=== PATIENT | male | born 1955 | race Caucasian/White ===

== ENCOUNTER 2019-06-16 17:14 | Inpatient (IN) | payer BC, OTHER ==
[~2019-06-16] VITALS: Ht 162.6 cm; Wt 55.3 kg
[2019-06-16 18:00] VITALS: BP 115/59
--- NOTE | 2019-06-16 19:36 | NUR ---
Admitted patient approx 1730. Patient presents drowsy. Patients was present. Patients assessment shows clear breath sounds bilaterally, active bowel sounds, and s1 s2 present with a regular rhythm. Patient has a small scab on his left elbow. Patient came to [facility] with an iv in the left antecubital area. Patient is calm and denies pain. Vital signs stable. Consents signed by patients . Patient is currently unstable to ambulate without assistance. Patients was given the passcode for calling [facility].
[2019-06-16] MEDS ORDERED: DULCOLAX STOOL100 M1 PO (19:48)
[2019-06-16] MEDS ORDERED: MELATIN3 MG (19:50)
[2019-06-16] MEDS ORDERED: OLANZAPINE ODT5 MG PO (19:51)
[2019-06-16] MEDS ORDERED: CARBIDOPA-LEVO1 EAC5 PO (19:53)
[2019-06-16] MEDS ORDERED: ZYPREXA2.5 MG IM (19:53)
[2019-06-16] MEDS ORDERED: DONEPEZIL HCL10 MG PO (19:55)
[2019-06-16] MEDS ORDERED: ESCITALOPRA5 MG/5 ML PO (19:56)
[2019-06-16] MEDS ORDERED: ARICEPT10 M1 PO (19:56)
[2019-06-16] MEDS ORDERED: NAMENDA 10 MG T10 MG PO (19:57)
[2019-06-16 23:34] VITALS: BP 118/62
--- NOTE | 2019-06-17 03:43 | NUR ---
ASSUMED CARE OF PATIENT AT APPROXIMATELY 1915, 06/16/19. HE IS CALM AND COOPERATIVE APPEARS WITH A SAD FLAT AFFECT. HE DOES RESPOND APPROPRIATELY TO QUESTIONS AND FOLLOWS PROMPTS AND DIRECTIONS WITH EASE. HE IS MEDICATION COMPLIANT; TAKES MEDICATION WHOLE WITH NO ISSUES. HE WAS ABLE TO AMBULATE TO THE TOILET WITH X1 ASSIST. HE DENIED SI HI AND DID NOT APPEAR TO EXPERIENCE HALLUCINATIONS. HE DID NOT REPORT MEDICAL CONCERNS WITH NO S/S OF DISTRESS. NURSING WILL MAINTAIN Q12 CHECKS TO ENSURE SAFETY AT ALL TIMES.
--- NOTE | 2019-06-17 06:25 | NUR ---
PATIENT REFUSED 0600 MORNING MEDICATIONS. WHILE ATTEMPTING TO ADMINISTER MEDICATION, PATIENT APPEARED WITH A STOIC AFFECT, APPEARS SAD ET FLAT. CURRENTLY PATIENT IS LOOKING DOWN AND WILL NOT LOOK UP TO THIS NURSES FACE OR ACKNOWLEDGE THIS NURSE. WILL CONTINUE TO MONITOR.
--- NOTE | 2019-06-17 08:53 | NUR ---
Ramo called spouse to complete intake assessment. Pt has had increased behaviors and impulsivity. Pt's works 4 days a week and states she wants her spouse placed in a memory care. Thye are not prepared for this and will be consulting with an elder law city attorney today. Pt will need DPOA paperwork signed for medical and spouse will need to apply for medicaid for placement and pick a place. Ramo reinforced the urgency to complete these tasks due to time contraints.
[2019-06-17 10:46] VITALS: BP 93/57
--- NOTE | 2019-06-17 11:00 | NUR ---
704 Report received from overnight shift, patient ate breakfast took medication without incidence. Patient quiet minimal eye contact, nonverbal, cooperative.
[2019-06-17 13:11] VITALS: BP 93/57
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
[2019-06-17 20:16] VITALS: BP 127/68
--- NOTE | 2019-06-18 01:45 | NUR ---
PATIENT ASSESSED AND IS ALERT X 1 SELF. RESP EVEN AND UNLABORED. SKIN WARM AND DRY. CAME IN WITH PARKINSON DISEASE AND DEMENTIA. IS A FULL CODE. INCONT OF BOWEL AND BLADDER. HAD THORAZINE ON BOARD DUE TO BEHAVIOR THIS AFTERNOON. AWAKEN AROUND 1000 PM WAS VERY COOPERATIVE IN BEHAVIOR. WALKED TO BATHROOM TO VOID. IS MAX ASSIST WITH GAIT BELT AND WALKER. UNKNOWN WHENHE HAD A LAST BM WILL GIVEN MED IN AM FOR HIS BOWELS. VS STABLE. HAS TO HAVE A 1:1 WHEN HE IS AWAKE, AND 1: 1 CAN BE DC WHEN HE IS A SLEEP. NO SI/HI NOTED. HAS BEEN VERY COOPAERATIVE WITH STAFF AND RN THIS SHIFT SO FAR. TAKEN HS MEDS WELL. LUNGS CTA. NO EDEMA NOTED TO LOWER EXTREMITIES. TAKES MEALS WELL. WILL CONTINUE TO ASSESS BEHAVIOR THIS SHIFT. HAD AN ISSUE WHEN HE WAS IN CHAIR WITH LAP DYLAN, GOT COMBATIVE, WAS GIVEN THORAZINE FOR HIS BEHAVIOR. CONT PLAN OF CARE.
--- NOTE | 2019-06-18 07:00 | NUR ---
Assumed care of patient this am. Patient confused but cooperative. Patients affect is flat. Patient is slow to respond to verbal communications. Patient ambulates via wheel chair. Patients assessment reveals clear breath sounds, active bowel sounds, and heart tones s1 and s2. Vital signs stable. Patient takes medications crushed in ice cream or pudding. Patients appetite is good.
[2019-06-18 09:30] VITALS: BP 101/57
--- NOTE | 2019-06-18 13:51 | NUR ---
JAYA met with spouse while she visited her today. Sw provided her with a list of Medicaid [place] and SNF.
[2019-06-18 20:28] VITALS: BP 119/65
--- NOTE | 2019-06-18 21:59 | NUR ---
PT PROPELING SELF IN W/C IN DAY ROOM AND HALLWAY. LAP BELT, CHAIR AND BED ALARMS IN USE. SLOUCHED OVER, POOR EYE CONTACT, NO VERBAL STATEMENTS TO QUESTIONS ASKED. PT PICKING AT PANTS AND TAKING OFF SOCKS. PT COMPLIANT WITH MEDS AND HS SNACK. WHEN PT WAS HAVING ADL AND INCONTINENCE CARES PT WAS IMPULISIVELY STANDING GRABBING AND SQUEEZING AT STAFFS HANDS AND LEGS. PT KICKING, PUSHING HIS BODY INTO STAFF. SECURITY WAS ON FLOOR ALREADY AND ASSISTED WITH RETURNING PT TO CHAIR. PT RESPONDED TO DIRECTIONS BY MALE SECURITY, NO VERBAL RESPONSES RETURNED. PT HAD PRN IM FOR SEVERE AGIATION. PT SITTING IN BED AND STAFF ARE HAVING TO SIT IN ROOM, PT REMAINS UPRIGHT IN BED GRABBING AT SHEETS.
--- NOTE | 2019-06-18 23:15 | NUR ---
PT DID FALL ASLEEP AND RESTING IN BED, ALARM INTACT.
--- NOTE | 2019-06-19 00:48 | NUR ---
PT INCONTINENT AND SET OFF ALARM WHEN TRYING TO GET OUT OF BED. PT RESISTANT TO ADL CARE, BUT NOT AGGRESSIVE. PT REMINDED THE POLICE WOULD BE CALLED IF HE DID NOT HELP US AND PT FOLLOWED DIRECTIONS FOR STAFF.
--- NOTE | 2019-06-19 01:52 | NUR ---
PT RESTLESS NOT SLEEPING SITTING UP PICKING AT SHEETS, PULLING SELF UP IN IF GOING TO LEAN OUT OF BED. PT GRABS AT STAFF DURING INCONTINENCE CHECKS. KICKS LEGS OUT OF BED PRN IM GIVEN FOR CONTINUED AGITATION.
--- NOTE | 2019-06-19 02:47 | NUR ---
PT AWAKENED TO USE RESTROOM, WAS ABLE TO FOLLOW DIRECTIONS, WAS NOT COMBATIVE, STATED THANK YOU AND RETURNED TO BED.
[2019-06-19 11:00] VITALS: BP 99/63
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
--- NOTE | 2019-06-19 12:30 | EKG ---
[address] [address] ELECTROCARDIOGRAM REPORT Name: SALOME AGUERO Room #: 528A-A ADM IN .R.#: [id number] Admission: 06/16/19 Attend Phys: Michelet Baca DO Discharge: Date of : 59 Report #: [id number] THIS REPORT FOR: //name// [facility] Test Date: 2019-06-19 Test Time: 09:22:12 Pat Name: SALOME AGUERO Department: Room: [facility] A Gender: M [employer] Lead: RT : 1955 Requested By: Michelet Baca Order Number: [id number] MD: Mukesh Lin Measurements Intervals [place] Rate: 74 P: 66 IN: 145 QRS: 68 QRSD: 100 T: 28 QT: 417 QTc: 463 Interpretive Statements Sinus rhythm No previous ECG available for comparison Electronically Signed On 06-19-2019 12:30:19 [employer] SUPERVISOR by Mukesh Lin [email or web address] <ELECTRONICALLY SIGNED> By: Mukesh Lin MD 06/19/19 1230 0922 09 Mukesh Lni MD /EPI
--- NOTE | 2019-06-19 15:27 | NUR ---
JAYA sent referrals to [facility]- both declined. [facility], [facility], [facility], [facility] [place] , [facility], [facility], [facility]. [facility], [facility], [facility], [facility], [facility]
--- NOTE | 2019-06-19 15:30 | NUR ---
Ramo sent DA 124 to [facility]
[2019-06-19 19:40] VITALS: BP 155/94
[2019-06-19 23:16] VITALS: BP 99/63
--- NOTE | 2019-06-20 03:01 | NUR ---
PT UP IN WC IN DAY ROOM. QUIET AND COOPERATIVE WITH STAFF. DROWSY. ASSISTED WITH EVENING SNACK,AND TOOK HS MEDS WITH PUDDING. ALLOWED STAFF TO ASSIST TO ROOM AND BED. HAS SLEPT WELL THROUGH THE NIGHT.
--- NOTE | 2019-06-20 07:00 | NUR ---
Assumed care of patient this am. Patient asleep in bed. Patient arouses easily. Patient ambulates via wheelchair. Patient stands with assistence. Patient does display some tremoring. Patient denies pain. Patient takes medications crushed in pudding or applesauce. Patients assessment reveals clear breath sounds, active bowel sounds, and s1 s2 are present. Patients affect slightly blunted.
[2019-06-20 08:24] VITALS: BP 115/62
[2019-06-20 20:40] VITALS: BP 112/60
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
--- NOTE | 2019-06-20 22:18 | NUR ---
PT WAS COMPLIANT WITH USING URINAL AND HS ADL CARES. PT IS A TWO PERSON TO STAND IS REMAINS HUNCHED OVER.
--- NOTE | 2019-06-20 23:41 | NUR ---
PT HAS A STUFFY NOSE, WILL PASS ON FOR DAY SHIFT TO F/U.
--- NOTE | 2019-06-21 06:31 | NUR ---
marble cutter operator notified of pts stuffy nose, prn nasal spray ordered.
[2019-06-21 07:50] VITALS: BP 124/65
--- NOTE | 2019-06-21 08:25 | NUR ---
Date of Admission: 06/16/19 Date of Activity Therapy Assessment: 06/19/2019 Activity Goal: Pt will participate in one recreational therapy group per day to gain insight of helahty leisure choices. Initial Goal: One RT group Weekly progress towards goal:Did not achieve Group participation level:Minimal Behaviors observed:Pt is often confused and disoriented. Pt wanders and appers restless during group. Pt struggles with directions. Pt takes a lot of time to formulate a thought and it appears difficult for pt to communicate. Pt appears to respond well to sensory and fidget items. Pt could benefit from 1:1 interactions. Plan: Offer 1:1 or alternate sensory activity when appropriate.
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
[2019-06-21 11:12] VITALS: BP 124/65
--- NOTE | 2019-06-21 11:23 | NUR ---
0705 Report received from overnight shift, patient ate breakfast took medication without incidence. You have to place medication in patients mouth due to tremors. Patient does not attend groups, and is nonverbal, he is able to understand 1:1 instructions. Patient quiet plays with gown in day room, we will continue to monitor patient for safety.
[2019-06-21 20:23] VITALS: BP 129/73
--- NOTE | 2019-06-22 05:38 | NUR ---
PATIENT IS ALERT AND ORIENTED X1, HE HAS BEEN IN THE DAY ROOM SLOUCHED OVER IN HIS CHAIR MOST OF THE SHIFT. HE APPEARS WITH A FLAT BLUNTED AFFECT. SPEECH IS SOFT IN SOUND AND TONE. HE DISPLAYED NO AGGRESSIVE BX AND ALLOWED STAFF TO ASSIST HIM WITH ADLS. HE DID NOT REPORT SI HI OR HALLUCINATIONS. HE DENIED MEDICAL CONCERNS WITH NO S/S OF DISTRESS. NURSING WILL MAINTAIN ALL PRECAUTIONS TO ENSURE SAFETY AT ALL TIMES.
--- NOTE | 2019-06-22 07:00 | NUR ---
Assumed care of patient this am. Patient sitting in room on the side of the bed. Patient affect confused. Patient ambulates with wheelchair. Patient takes medications crushed in pudding or applesauce. Patient not responding to RN questions. Patients assessment shows bilateral wheezes in the upper lobes. Bowel sounds present. S1 s2 present. Patient requires help with feeding.
--- NOTE | 2019-06-22 08:00 | NUR ---
Patient became aggressive and agitated sitting in the mileu this am. Patient would not redirect. Patient started grabbing and hitting. Security was called, Patient was given an injection of zyprexa.
[2019-06-22 09:07] VITALS: BP 158/134
--- NOTE | 2019-06-22 10:39 | NUR ---
SW called pt's spouse twice to set up a family meeting , and left VM.
--- NOTE | 2019-06-22 14:47 | NUR ---
SW referrals to : [facility]
--- NOTE | 2019-06-22 16:06 | NUR ---
SW also called pt's dght and left a VM [facility] [phone].
--- NOTE | 2019-06-22 16:07 | NUR ---
Pt was denied by [facility].
--- NOTE | 2019-06-22 18:22 | NUR ---
Patient displayed aggressive behavior in the morning and required an IM injection of zyprexa. Patient calmed down after injection started working. Again in the afternoon patient started showing signs of aggressive behavior and was given another shot of zyprexa. Patient calmed down and remained awake in his chair resting comfortably.
[2019-06-22 19:12] VITALS: BP 120/66
[2019-06-23 01:02] VITALS: BP 120/66
--- NOTE | 2019-06-23 01:14 | NUR ---
PATIENT'S DAUGHTER ATNYA CALLED THIS EVENING AND IS WANTING DR HANSEN TO CALL HER TO DISCUSS PATIENT'S MEDS. SHE DOESN'T WANT HIM ON ZYPREXA DUE TO CONFLICTS WITH HIS PARKINSON'S MEDS THAT SHE READ ABOUT. PATIENT SAT UP IN THE DAYROOM MOST OF EVENING AND WAS CALM. HE TOOK HIS PILLS CRUSHED IN PUDDING WITHOUT PROBLEM. PATIENT LUNGS DIMINISHED AND HIS NOSE SOUNDS LIKE IT IS STUFFY AND STOPPED UP WHEN HE BREATHES. VSS. PATIENT HAS A SORE ON HIS LEFT FOREARM THAT HE WAS PICKING AT TONITE. THE SITE IS SCABBED OVER. PATIENT WAS SITTING IN HIS RECLINER UNTIL TIME FOR BED. PATIENT HAD INCONTINENT CARES DONE AND PATIENT POSITIONED COMFORTABLY IN BED. HE WAS NOT COMBATIVE. HE DID NOD HIS HEAD YES WHEN ASKED IF HE WAS READY TO GO TO BED. PATIENT IS SLEEPING AT THIS TIME. BED ALARM ON AND BED IN LOW POSITION. REPOSITIONING PATIENT NEEDED.
[2019-06-23 09:04] VITALS: BP 130/83
[2019-06-23 10:53] VITALS: BP 130/83
--- NOTE | 2019-06-23 11:01 | NUR ---
THE PATIENT HAS BEEN SITTING IN THE DAY ROOM THIS MORNING IN A WC WITH A LAP DYLAN ON. HE HAS BEEN A BIT RESTLESS. HE DOES ANSWER SOME QUESTIONS THAT ARE ASKED. HE IS INCONTINENT AND CONFUSED BUT IF ASKED TO USE THE BR SOMETIME HE WILL BE ABLE TO TELL YOU YES WHEN HE NEED TO GO. HE IS TO HAVE BR CHECKS Q2 HOURS. HE IS ORIENTED TO SELF. HIS IS VISITING HIM AT THIS TIME. HE NEEDS ASSISTANCE WITH EATING AND ADL'S. HE HAS BEEN CALM AND COOPERATIVE THIS AM. AND COMPLIANT WITH MEDICATIONS.
--- NOTE | 2019-06-23 12:57 | NUR ---
JAYA spoke with pt's spouse and Dr Baca. She was provided an update and explanation regaridng medications. JAYA reported about the referrals that were sent out and that several more were sent today. Pt will be seen by Elvis Lozano today too. She will be faxing the DPOA paperwork from the attorneys office today.
[2019-06-23 20:17] VITALS: BP 90/57
[2019-06-23 22:40] VITALS: BP 90/57
--- NOTE | 2019-06-23 23:32 | NUR ---
PATIENT WAS SITTING IN A RECLINER WITH WHEELS IN THE DINING ROOM. THIS NURSE AND ANOTHER NURSE WERE IN THE NURSE STATION WHEN NOTICED PATIENT SCOOTING TO EDGE OF CHAIR. WE CALLED OUT TO PATIENT TO "STOP" WE WERE RUNNING TO THE PATIENT. NICOLASA DEMARCO WAS SITTING IN THE DINING ROOM WHERE PATIENT WAS ALSO. THE NURSE JUAN Garza AND MYSELF REACHED THE PATIENT HE WAS FALLING TO THE GROUND. HE LANDED ON HIS BUTTOCKS. HE DENIES PAIN. HE DID NOT HIT HIS HEAD. PATIENT LOST BALANCE AND FELL. Kayy KRUEGER NP AND PATIENT'S NOTIFIED. THIS HAPPENED AFTER PATIENT HAD TAKEN HIS MEDS TO AID WITH SLEEP. THE PATIENT HAS DIAGNOSIS OF DEMENTIA WITH CONFUSION AND BEHAVIORS AND ALSO HAS PARKINSON'S. VITALS WERE DONE ON PATIENT WNOL 102/69, 72, 20, 98.1 AND 100% 02 RA. PATIENT IS IN BED NOW WITH BED ALARM ON AND BED IN LOW POSITION. PATIENT WAS TOILETED AND ASSESSED FOR PAIN AGAIN BEFORE GOING TO BED FOR THE NIGHT. WAS ALSO NOTIFIED.
[2019-06-23 23:40] VITALS: BP 117/94
--- NOTE | 2019-06-24 00:06 | NUR ---
PATIENT WAS RESTLESS AND AGITATED AND KEPT TURNING HIMSELF AROUND IN HIS BED. VERY FIDGETY. REPOSITIONED PATIENT AND ASSESSED FOR PAIN AND TOILET NEEDS. OLANZAPINE 2.5MG IM GIVEN IN RIGHT BUTTOCK. BED IN LOW POSITION AND ALARM ON. PATIENT LIKES TO SLEEP SIDEWAYS IN BED. FREQUENT CHECKS DONE TO MAKE SURE HIS HEAD IS NOT RESTING DIRECTLY ON THE SIDE RAIL. PILLOW PLACED APPROPRIATELY TO PROTECT THE BACK OF HIS HEAD AND NECK.
[2019-06-24 00:13] VITALS: BP 90/57
--- NOTE | 2019-06-24 07:00 | NUR ---
Assumed care of patient this am. Patient sitting up in mileu in a wheelchair. Patients affect soft and bright. Patient relaxed and smiling. Patient can ambulate via walker with assistance. Patient is not displaying any aggressive behaviors. Patient denies pain. Patients assesment reveals clear breath sounds, active bowel sounds, and s1 s2 present.
[2019-06-24 07:30] VITALS: BP 84/60
--- NOTE | 2019-06-24 10:49 | NUR ---
Nutrition: pt admitted with parkinsons dementia. Seen for early LOS and nsg request for supplement. RD ordered Ensure BID on 06/24. Pt on regular diet, eating highly variable amounts from refusal to 100% PO intake was 50-95% of meals yesterday and approx. 50% of ensure being consumed. Attempted to interview pt but unable to obtain info. No weight hx to asssess. Currently weight reflecting normal BMI. Per team meeting likely plan for placement. Provider feels pallative care reasonable due to life expectancy 6-9 mos. Continue feeding assistance at all meals. Place as low nutrition risk with interventions in place.
--- NOTE | 2019-06-24 14:37 | NUR ---
Ramo met with pt's spouse and Dr saenz this inlcuded a phone converstation with [facility]. It was regaridng meds and treatment. Ramo reported on LTC placement referrals that were sent and pending results. Ramo also spoke with Tran - service line coordinator at [facility] in [place] inpt psych reagrding a possible transfer, and she did not think this was in best interest of the pt, but is willing to look at the referral. RAMO requested for the DPOA paperwork from the family. Pt is still pending with [facility].
[2019-06-24 19:18] VITALS: BP 147/86
--- NOTE | 2019-06-25 01:28 | NUR ---
ASSUMED CARE OF PATIENT AT APPROXIMATELY 1915. HE HAS BEEN AT THE TABLE IN THE DAY ROOM SLOUCHED OVER MOST OF THE EVENING. HE APPEARS WITH A FLAT SAD AFFECT. HE DOES CONVERSE IN SIMPLE WORDS WITH THIS NURSE. HE WAS MEDICATION COMPLIANT, NO COMBATIVE BX OBSERVED WITH STAFF. HE DID NOT REPORT SI HI SH WELL HALLUCINATIONS. HE DOES NOT APPEAR TO BE IN MEDICAL DISTRESS. NURSING WILL MAINTAIN ALL PRECAUTIONS TO ENSURE SAFETY AT ALL TIMES.
[2019-06-25 09:05] VITALS: BP 115/79
[2019-06-25 10:37] VITALS: BP 115/79
--- NOTE | 2019-06-25 10:50 | NUR ---
0702 Report received from overnight shift, patient was restimg at beginning of shift. Patient ate breakfast took medication without incidence. Patient is calm cooperative patient can be impulsive at times. We will continue to monitor patient for safety and behaviors.
--- NOTE | 2019-06-25 14:36 | NUR ---
SW sent several new referrals this AM. [facility], [place], [facility], [facility] [place], [facility] ( denied) [facility] ( denied) [facility] ( denied) [facility] ( denied0 and [facility]. Spouse also sent a VM stating that she does not want her to be transferred.
[2019-06-25 20:17] VITALS: BP 120/76
[2019-06-26 00:39] VITALS: BP 120/76
--- NOTE | 2019-06-26 00:51 | NUR ---
PATIENT HAS BEEN UP IN A RECLINER IN THE DINING ROOM THIS EVENING. HE WAS ASSISTED TO THE BATHROOM IN HIS ROOM TWICE. HE IS STILL WEAK ON HIS LEGS AND NEEDS ASSIST OR STANDBY WHEN USING HIS WALKER. PATIENT IS BACK IN DINING ROOM TO SLEEP IN RECLINER. HIS FEET ARE ELEVATED TO DECREASE ANKLE/FEET SWELLING. PATIENT HAS BEEN CALM AND TOOK HIS MEDS WHOLE WITHOUT INCIDENT.
--- NOTE | 2019-06-26 00:54 | NUR ---
PATIENT UP IN HER WC IN DINING ROOM BEFORE BED TIME. HE ATE 100% OF SNACK AT HS. MEDS WERE CRUSHED IN ICECREAM AND HE TOOK WITHOUT INCIDENT. PATIENT HAS BEEN CALM TONITE. HE ANSWERS MY QUESTIONS WITH WORDS AND HAS VERBALIZED WORDS WHILE TRYING TO HAVE A CONVERSATION. PATIENT WAS COMPLIANT WITH ADL'S. HE CAN VERBALIZE WHEN HE NEEDS TO USE THE RESTROOM AND VOIDS PER URINAL. PATIENT IS IN BED NOW. HE IS CALM AND SLEEPING. BED IN LOW POSITION AND BED ALARM ON. WILL CONTINUE TO MONITOR.
--- NOTE | 2019-06-26 07:00 | NUR ---
Assumed care of patient this am. Patient sitting in wheelchair in [facility]. Patient awake and responds to his name. Patient denies pain. Patient talks with a low whisper like voice. Patient affect is soft and relaxed. Patient takes medications crushed in applesauce or pudding. Patients assessment reveals clear breath sounds, active bowel sounds, and s1 s2 present on auscultation.
[2019-06-26 07:30] VITALS: BP 74/41
[2019-06-26 20:37] VITALS: BP 139/80
--- NOTE | 2019-06-27 01:49 | NUR ---
ASSUMED CARE FROM DAY SHIFT PT UP IN CHAIR WITH LAPBUDDY IN PLACE. PT NON-VERBAL BUT FOLLOWS SIMPLE COMMANDS , PO MEDICATION TAKEN WITH APPLESAUCE, THEN PT ASSISTED TO BED WITH ASSIST OF 2 , PT INCONTINENT OF URINE, CHE AREA CLEAN AND NEW BRIEF PLACED ON BED . BED ALARM ON FOR SAFETY. PT RSTING WELL THROUGHOUT FREQ ROUNDING, WILL CONITNUE WITH CURRENT PLAN OF CARE AND WILL REPORT CHANGES OR ABNORMAL FINDINGS.
--- NOTE | 2019-06-27 04:03 | NUR ---
Patient woke up needing to use the bathroom in the middle of the night. Incontinent of bladder. Patient provided jung care and linens changed. Patient calm, pleasant and cooperative. Patient slow to respond and requires time to comprehend instructions. Patient was able to make needs known but just took longer to express them. No aggression or agitation observed. Patient confused and forgetful. Denies pain or discomfort. Patient restless at times. Nurse offered to assist patient get up in recliner. Patient clearly asked what time it was. When he was told it was 0300, patient stated he would like to stay in bed and "catch up on my sleep". Patient assisted back to bed and is resting quietly at this time. Patient did converse with nurse, smile and made a joke.
[2019-06-27 10:15] VITALS: BP 157/109
--- NOTE | 2019-06-27 15:12 | NUR ---
PATIENT HAS BEEN UP IN WHEEL CHAIR, SITTING IN DAY ROOM. PATIENT IS FORGETFUL, AND CONFUSED AT TIMES. PATIENT TOOK ALL MEDICATION WHOLE IN PUDDING. PATIENT IS EATING MEALS, AND DRINKING FLUID WELL. PATIENT DENIES SUICIDAL/HOMICIDAL IDEATION, NOT ABLE TO APPROPRIATELY RESPOND TO FURTHER ASSESSMENT QUESTIONS DUE TO COGNITIVE IMPAIRMENT. PATIENT HAD BLOOD PRESSURE OF 157/109. DR. KEENAN NOTIFIED, PRN ORDER FOR CLONIDINE 0.1MG FOR SBP > 160 NOTED AND CARRIED FORWARD. PATIENT B/P RECHECKED WITH RESULT OF 128/67. CLONIDINE HELD DUE TO BLOOD PRESSURE WNL. NO AGGRESSION OR AGITATION NOTED AT THIS TIME. PATIENT CURRENTLY SITTING IN A WHEEL CHAIR IN DAYROOM FIDGETING. NO SIGN OF ACUTE DISTRESS NOTED AT THIS TIME. PATIENT DENIES HAVING PHYSICAL PAIN, WILL MONITOR FOR SAFETY.
[2019-06-27 20:12] VITALS: BP 119/79
--- NOTE | 2019-06-28 02:50 | NUR ---
1909-Report received from day shift nurse and care assumed. Hill was cooperative with assessment, was in the day room sitting watching television in the evening. He had good eye contact, voiced sentences not undertandable though with "word salad"/ not organized sentences, but communicating with calm/socialable manner. He was med. compliant with HS meds. and has slept well tonite thus far.
[2019-06-28 07:44] VITALS: BP 109/88
--- NOTE | 2019-06-28 16:00 | NUR ---
HAS BEEN VISIBLE IN DAYROOM SITTING WITH PEERS SO FAR THIS SHIFT-DOES ATTEND SCHEDULED GROUPS BUT LITTLE ACTIVIE PARTICIPATION OBSERVED. SITS WITH HEAD LOWERED-WILL RESPOND VERBALLY AT TIMES WHEN ASKED QUESION AND AT TIMES RESPONSES ARE APPROPRIATE TO QUESTIONS ASKED-SPEECH IS GARBLED DIFFICULT TO UNDERSTAND. REQUIRES FEEDING AT MEALS AND HAS EATEN 75-100 PERCENT WITH ASSISTANVE. COMPLIENT WITH TAKING PO MEDS-RESTLESS AT TIMES TAPPING ON TABLE OR GRABBING WHEELS ON CHAIR AND MIMICS IF FIXING. ASSISTED TO BR WITH SBA 1-2 STAFF.
[2019-06-28 20:03] VITALS: BP 103/78
--- NOTE | 2019-06-29 01:02 | NUR ---
ASSUMED CARE OF PATIENT AT APPROXIMATELY 1915. PATIENT HAS BEEN IN DAY ROOM THROUGHOUT THE EVENING IN W/C. HE WAS NOT OBSERVED INTERACTING WITH OTHER PEERS. HE WOULD RESPOND TO SIMPLE QUESTIONS NURSING STAFF ASKED HIM IN A QUIET TONE. HE APPEARS WITH A FLAT, PERPLEXED AFFECT. HE DID NOT VERBALIZE SI HI TO THIS NURSE BUT IT IS DIFFICULT TO ASSESS PATIENT. HE DISPLAYED NO AGGRESSIVE BX THIS EVENING. PATIENT WAS COOPERATIVE. HE DID NOT VERBALIZE MEDICAL CONCERNS, NOR DID HE APPEAR TO BE IN DISTRESS. NURSING WILL MAINTAIN ALL PRECAUTIONS TO ENSURE SAFETY AT ALL TIMES.
--- NOTE | 2019-06-29 07:00 | NUR ---
Assumed care of patient this am. Patient sitting up in wheelchair in [facility]. Patient calm and content and answers some questions slowly. Patient denies pain. Patients affect relaxed. Patients assessment reveals clear breath sounds, active bowel sounds, and s1 s2 present. Vital signs stable.
[2019-06-29 07:48] VITALS: BP 94/66
--- NOTE | 2019-06-29 12:31 | NUR ---
Patient ate most of his lunch and participated by feeding himself intermittently. Patient drank all of his ensure.
[2019-06-30 03:07] VITALS: BP 94/66
--- NOTE | 2019-06-30 03:40 | NUR ---
PT OUT IN DAY AREA AT START OF EVENING. DROWSY AT TIMES. AFTER SNACKS PT WAS ESCORTED TO ROOM AND TO BED. SOMEWHAT COMBATIVE WHEN ASSISTED TO BED, BUT SETTLED. TOOK HS MEDS CRUSHED WITH PUDDING W/O PROBLEM. HAS SLEPT WELL THROUGH THE NIGHT TO THIS POINT.
--- NOTE | 2019-06-30 08:00 | NUR ---
Assumed care of patient this am. Patient sitting in wheelchair in [facility]. Patients affect soft and happy. Patient answering questions this morning. Stevie takes pills crushed with pudding or apple sauce. Patient ambulates in wheelchair. Patient denies pain. Patients assessment reveals clear breath sounds, active bowel sounds, and s1 s2 present with auscultation.
[2019-06-30 09:56] VITALS: BP 93/54
--- NOTE | 2019-06-30 13:00 | NUR ---
JAYA sent several more referrals today- provided by family. Katarina Heth and [facility] denied already.
[2019-06-30 20:37] VITALS: BP 130/70
--- NOTE | 2019-07-01 02:30 | NUR ---
ASSUMED CARE OF PATIENT AT 1915, PATIENT HAS BEEN IN DAY ROOM MUCH OF THE SHIFT, EXPERIENCING INSOMNIA. HE APPEARS FIDGETY AT TIMES ET RESTLESS. HE DOES APPROPRIATELY RESPOND TO SHORT ANSWERS. HE HAS NOT DISPLAYED ANY AGGRESSIVE BEHAVIORS THIS SHIFT. HE DID NOT REPORT SI HI, NOR DOES HE APPEAR TO RESPOND TO INTERNAL STIMULI. HE DID NOT REPORT MEDICAL CONCERNS WITH NO S/S OF DISTRESS. NURSING WILL MAINTAIN Q12 CHECKS TO ENSURE SAFETY AT ALL TIMES.
--- NOTE | 2019-07-01 02:37 | NUR ---
LEFT MESSAGE WITH NEUROLOGY FOR ORDERED CONSULT AT [phone]. REPORTED THEY WOULD SEE PATIENT IN THE MORNING.
[2019-07-01 08:01] VITALS: BP 92/50
[2019-07-01 08:30] VITALS: BP 92/50
--- NOTE | 2019-07-01 09:00 | NUR ---
PT IN W/C THIS AM. PT GETS RESTLESS WHEN HE NEEDS TO VOID. PT HAS BRIEF ON. INCON OF URINE AT TIMES. PT SPEAKS WHEN SPOKEN TO, DELAYED RESPONSE. PT CHEWED MEDS THIS AM.
--- NOTE | 2019-07-01 11:27 | NUR ---
Nutrition: pt seen per followup. Attempted to talk with pt but states " I dont have anything to talk about" Most recent weight is down 3# from 06/16. Follow trends. PO intake is 75-100% of meals and 100% of supplements Ensure BID. Noted placement is current challengt. No new recommendations. Low risk.
--- NOTE | 2019-07-01 12:30 | NUR ---
ASSISTED PT TO BATHROOM X3 ASSIST. PT SAT ON COMMODE AND HAD LARGE BM. PT ALSO VOIDED.
--- NOTE | 2019-07-01 14:52 | NUR ---
PT MEDS CRUSHED AT THIS TIME. PT BITTING DOWN ON PLASTIC SPOON. PT DID OPEN MOUTH WHEN PROMPTED TO.
--- NOTE | 2019-07-01 15:26 | NUR ---
SW student followed up with all of the referrals sent yesterday and there is one [facility] at [facility] that will be considering this pt with a few more " good days". Ramo called and repported this to pt's spouse and asked for the 4 more referrals that she wanted to add to the choices.
--- NOTE | 2019-07-01 15:30 | NUR ---
ASSISTED PT TO COMMODE IN ROOM X3 ASSIST. PT KEPT PULLING UP HIS PANTS, PT VOIDED ON HIS PANTS. PT NEEDED HELD ONTO COMMODE WHEN CHANGING.
[2019-07-01 20:33] VITALS: BP 132/78
--- NOTE | 2019-07-02 05:06 | NUR ---
1909-Received report from day shift nurse and care assumed. Hill was compliant with HS meds. tonite. VS P=89, R=20, T37.1C, oi=950/78. He had jerks and tremors. He was restless and notified and ordered Ativan 1 mg. po x 1 at 2330. It was somewhat effective. He did not sleep tonite however.
[2019-07-02 09:20] VITALS: BP 142/87
[2019-07-02 12:23] VITALS: BP 142/87
--- NOTE | 2019-07-02 12:31 | NUR ---
0655 Report received from overnight shift, patient cooperative ate breakfast and took medication crushed in applesauce. Dr. Knutson came to round on patient and states patient is declining, family is aware of this and family would like pallative care for patient. Patient leans to side of w/c with head to the side. I tried to sit patient up and stabilize head, will continue to monitor patient.
[2019-07-02 19:30] VITALS: BP 115/61
--- NOTE | 2019-07-03 03:24 | NUR ---
Care assumed of patient at 1915: Patient seated in w/c in day room at start of shift. Patient calm, pleasant and cooperative. Compliant with nursing assessment. Patient denies pain or discomfort. Patient has periods of clear speech. Patient is slow to answer, slow to respond. Some questions need to be asked twice. Patient does need several seconds to comprehend question before responding. Patient took HS medication crushed without difficulty. Patient then ate 50% HS snack, being fed by nurse. Patient startles easily and needs reminded that all is OK. Patient alert and oriented to person only. Patient started to fall asleep in w/c and was taken to his room to be assisted to bed. Patient required max assist x2. Patient stood and used the urinal, continent of bladder. Patient did get startled and grabbed the urinal at one point, spilling urine on the floor. Needs frequent reminders and reassurance that all is OK. Patient did smile once at nurse and when told good night, he stated "good night, thank you" to the nursing staff. Patient was able to fall asleep without difficulty and has been resting quietly.
[2019-07-03 08:00] VITALS: BP 74/43
[2019-07-03 09:00] VITALS: BP 100/70; BP 90/60
--- NOTE | 2019-07-03 15:32 | NUR ---
Ramo sent referral to [facility] and they came out and made an assessment. Ramo contacted spouse and reported this to her.
[2019-07-03 19:30] VITALS: BP 88/51
--- NOTE | 2019-07-03 20:37 | NUR ---
Pt. cooperative most of day except for breaking strofoam cup and splashing water during meds and episode during toileting when he was attempting to use urinal and sprayed it all over self, WC and floor. Sat in day room in WC with lap radha most of day without s/o distress. Initial BPs obtain per machine were 70s/40s, repeat with manual was 90-100/60-70s. BP in afternoon was 107/50s. Color was always pink, brisk capillary refill and strong pulses. Breath sounds clear t/o, bilaterally equal. Active BS over soft, flat abdomen. No PRNs today. Requires help with feeding. Family here participating in care: Trimmed his hair and shaved him.
--- NOTE | 2019-07-04 02:31 | NUR ---
Care assumed of patient at 1915: Patient seated in w/c at start of shift. Appears to be interested in what others are doing in the room and people watching. Patient alert and oriented to person only. Patient calm, pleasant and cooperative. Denies pain or discomfort. Patient took HS medication crushed without difficulty. Ate 100% HS snack of pudding with total assist. Patient appeared to be having more tremors and tensed muscles as the night progressed. Patient is slow to respond. Has clear speech most of the time. Patient is able to make immediate needs known. Patient was asked who cut his hair. Patient looked up at nurse, smiled and said "Conchita". When asked who Conchita was, he stated his . Conversation is slow but does occur. Patient assisted to stand with staff x2 to use the urinal. Continent of bladder. Patient did try to grab the urinal but needs constant reminder that staff is holding the urinal and to trust us. No aggressive behaviors or agitation observed. Patient assisted to bed after using the urinal and has been resting since.
[2019-07-04 17:00] VITALS: BP 131/79
--- NOTE | 2019-07-04 17:00 | NUR ---
PT WAS NEEDING HELP WITH FEEDING THIS FESTUS. PT TRIED TO USE FORK TO FEED SELF.
[2019-07-04 19:44] VITALS: BP 148/76
--- NOTE | 2019-07-05 01:19 | NUR ---
Care assumed of patient at 1915: Patient was assisted to bed at start of shift due to having large incontinent bowel movement. Patient has remained in bed since. Patient has been sleeping quietly throughout the shift. Patient easily aroused. Woken for nursing assessment and medication administration. Patient ate 10% of applesauce. Took medication crushed without difficulty. Patient alert to person only. Confusion present. Patient has not appeared to have been restless as nights previous. Patient also having less muscles spasms and tightness. Denies SI/HI/AH/VH. Calm, pleasant and cooperative. No s/s of delusional or paranoia behaviors. Slow to respond. No aggression or agitation observed. Denies pain or discomfort.
[2019-07-05 14:59] VITALS: BP 148/76
--- NOTE | 2019-07-05 15:04 | NUR ---
ASSUMED CARE AT 0700 THIS MORNING. PT. IN W/C SITTING ON THE UNIT. PT. CALM AND SITTING QUIETLY. TOOK MEDS, CRUSHED IN APPLESAUCE WITHOUT PROBLEMS NOTED. HE TALKED TO STAFF FOR A BIT AND SEEMED TO ANSWER QUESTIONS APPROPRIATELY. ATE MEALS WITH ASSISTANCE OF STAFF. STAFF TRIED TO OFFER THE RESTROOM Q 2 HOURS. HE WAS IN THE DINING ROOM FOR MORNING GROUP BUT COULD NOT/DID NOT PARTICIPATE.
[2019-07-05 20:18] VITALS: BP 122/96
--- NOTE | 2019-07-05 23:54 | NUR ---
Care assumed of patient at 1915: Patient seated in w/c in dayroom at start of shift. Patient sitting with other peers, mumbling to himself or others, not sure. Patient fidgeting with fidget blanket. Patient leaning to the right. Nurse sat with patient and asked him to sit up and make eye contact which patient did. Once eye contact was made, patient smiled and said "hi!". Patient calm, pleasant and cooperative. Patient denies pain or discomfort. Appears that patient is experiencing muscle spasms due to holding his arms or legs tight and to his body. Patient was able to hold nurses hand, take slow deep breaths and his muscles started to relax. No aggression or agitation observed. Continent using the urinal this PM. Patient ate 100% HS snack with total assist. Patient took HS medication crushed without difficulty. Patient stood up to use the urinal with min assist x1, then assisted in transferring to his bed from w/c. Patient resting quietly at this time.
[2019-07-06 05:52] LABS: BASOPHILS 0.5 % (0.0-2.0); EOSINOPHILS 4.1 % (0.0-3.0); HEMATOCRIT 42.5 % (42.0-52.0); HEMOGLOBIN 14.3 gm/dL (14.0-18.0); LYMPHOCYTES 22.7 % (24.0-44.0); MCH 30.8 pg (26.0-34.0); MCHC 33.5 g/dL (28.0-37.0); MONOCYTES 6.5 % (1.0-8.0); PLATELET COUNT 331 thou/uL (150-400); POLYS 66.2 % (36.0-66.0); RBC 4.62 mil/uL (4.50-6.00); RDW 12.6 % (10.5-14.5); WBC 7.6 thou/uL (4.0-11.0)
[2019-07-06 06:36] LABS: ALBUMIN 3.8 g/dL (3.4-5.0); CALCIUM 8.8 mg/dL (8.5-10.1); MAGNESIUM 2.3 mg/dL (1.8-2.4); PHOSPHORUS 3.2 mg/dL (2.5-4.9); POTASSIUM 3.7 mmol/L (3.5-5.1); TOTAL BILIRUBIN 0.3 mg/dL (<0.1-1.0)
[2019-07-06 09:15] VITALS: BP 95/53
--- NOTE | 2019-07-06 14:38 | NUR ---
Care assumed of patient at 0715. At 0725 patient lying in bed awake and alert. Repositioned in bed at this time as patient was curled up lying sideways in bed. Pillow applied under head for comfort. patient denies pain and voiced "No" when asked if he had pain. Brief was dry at this time. Out to day room at 0800 for breakfast. Meds given crushed in pudding without incident. At 1000 patient taken to room and placed on bedside cammode x2 assist- voided yellow urine. In day room sitting in chair awake and alert.
--- NOTE | 2019-07-06 18:17 | NUR ---
Patient alert, sitting in Day room in Wheel Chair. No aggitagtion noted this shift. Answers when asked simple questions appropriately. No complaints of pain at this time.
[2019-07-06 19:50] VITALS: BP 135/99
[2019-07-07 02:05] VITALS: BP 135/99
[2019-07-07 02:29] VITALS: BP 135/99
--- NOTE | 2019-07-07 03:00 | NUR ---
LARGELY NONVERBAL THIS SHIFT, REQUIRING ENCOURAGEMENT TO GIVE MONOSYLLABIC ANSWERS TO QUESTIONS. COMPLIANT WITH TAKING ALL MEDS CRUSHED IN PUDDING. TO BED WITH ASSIST OF 2. APPEARS TO BE SLEEPING AT THIS TIME. NO APPARENT DISTRESS. NO C/O. SPENT EVENING HOURS IN WC IN DAYROOM.
[2019-07-07 08:30] VITALS: BP 94/35
--- NOTE | 2019-07-07 08:30 | NUR ---
PT UP IN W/C WITH KATERINE RICHARDSON. PT COMPLIANT WITH CARE AND TAKING CRUSHED MEDS WITHOUT ISSUES. PT SLOW TO RESPOND WITH VERBAL QUESTIONS. PT LUNGS CLEAR. PT TOLERATING CLEAR LIQUIDS. PT SMILES AT NURSING.
[2019-07-07 08:48] VITALS: BP 94/35
--- NOTE | 2019-07-07 10:58 | NUR ---
Nutrition followup: pt continues on [facility] unit with Parkinsons dementia, end stage. Intake continues 75-100% most meals/supplements on regular diet. Receives Ensure BID and likes chocolate flavor. Noted a possible weight decline of 9# or 7% from date of admit which if accurate is severe. Pt in positive fluid balance. Limited mobility, wheelchair bound and suspected LE muscle loss. RD will increase Ensure to TID as intake of supplement is good. Limited life expectancy noted, working on placement. REC weigh pt twice/week. Keep as low risk for now with interventions in place.
--- NOTE | 2019-07-07 14:08 | NUR ---
Pt was visited by Teresita pittman today for a second assesment and they asked or a hospice referral. This was initated with [facility] per pt's spouse request. This hospice assessment will be completed today. JAYA also confirmed that [facility] will cover the cost for transportation to [facility] if needed.
--- NOTE | 2019-07-07 14:30 | NUR ---
PT SAT ON TOILET AND BRIEF WAS DRY. PT DID HAVE URINATION ON BSC. PT TOLERATED ADL.
--- NOTE | 2019-07-07 15:11 | NUR ---
[facility] hosp[facility] arrived at 3pm with pts spouse for an informational and assessesment.
--- NOTE | 2019-07-07 16:33 | NUR ---
RAMO met with pt's spouse and [facility] hosp[facility] and confirmed that he willbe accepted to [facility] with [facility]. SW called and confirmed with both agencies and transporation will be set up for tomorrow by 11am. Pt's spouse signed the OWY DNR , and confirmed that she will be at [facility] by 10:30 07/08 to complete the admission to both [facility] and hospice. Ramo sent a fax that inlcuded the DNR, Letter of safety from Dr saenz, and the DPOA paperwork. Sw and pt spouse spoke with her hotel desk clerk and verified that they will submit her medicaid application by mid Jul and pt's spouse is aware that there will be an out of the amount due for placement. [facility] will have the DME for this pt ready at [facility] tomorrow. Fax included the DA [address]
[2019-07-07 19:36] VITALS: BP 134/83
--- NOTE | 2019-07-07 22:34 | NUR ---
Care assumed of patient at 191: Patient sitting in w/c in day room at start of shift. Patient alert and oriented to person. Patient confused and forgetful. Orientated patient that he is currently at the hospital. Patient looked at nurse and stated "I want to go home". Notified patient that he will be able to go to his new home tomorrow. Patient smiled and said "OK!". Told patient he would need to go to bed, get a good nights sleep, then he was going to leave tomorrow. Patient enjoyed this news. Patient denies pain or discomfort. Patient took HS medication crushed without difficulty. Ate 100% HS snack with total assist. No aggression or agitation observed. Patient assisted to bed with staff x2. Patient was able to ask to use the bathroom. Staff assisted with urinal at which time patient was continent of bladder. Patient was able to ambulate approximately 10 feet with max assist x2. Needed one step directions with frequent re-reminders. Tremors noted to bilateral upper and lower extremities. Patient said "I'm ready to lay down". Patient assisted to bed without incident and has been resting quietly since.
--- NOTE | 2019-07-08 07:00 | NUR ---
Assumed care of patient this am. Patient sitting up in wheelchair in [facility]. Patient in good spirits, soft affect. Patient ambulates via wheelchair. Patient takes medications crushed in pudding. Patient denies pain. Patients speech is slow and clear. Patients assessment reveals clear breath sounds, active bowel sounds, and s1 s2 present upon auscultation.
[2019-07-08 07:30] VITALS: BP 130/51; BP 80/51
--- NOTE | 2019-07-08 10:30 | NUR ---
Called report to Aisha at [facility]. Patients belongings confirmed and given to milk truck driver. Patient in wheelchair, vital signs stable, waiting for transport to [facility].
[2019-07-08] MEDS ORDERED: LEXAPRO 10 MG T10 MG PO (10:37)
[2019-07-08] MEDS ORDERED: ZYPREXA 5 MG TAB5 M1 PO ×2 (10:39)
[2019-07-08] MEDS ORDERED: CARBIDOPA-LEVO1 EA10 PO (10:40)
[2019-07-08] MEDS ORDERED: PEPCID20 MG PO (10:41)
--- NOTE | 2019-07-08 10:56 | NUR ---
Patient discharged with packet and medications to [facility]. Patient transported with RN via wheel chair to the van. Patient in good spirits and cooperative.
--- NOTE | 2019-07-10 21:44 | D ---
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 Medical comorbidities are as follows: Parkinsonian variant, Lewy body disease, end-stage, unstable gait due to the above, tachycardia during admission, but not currently. The patient is discharged to the [facility], Psychiatric and medical care to be performed by that receiving facility. DIET: As follows: Regular, Ensure Enlive Chocolate at all meals. DISCHARGE MEDICATIONS: Are as follows: Escitalopram 5 mg p.o. daily, olanzapine 1.25 mg p.o. daily at 12:00 p.m., olanzapine 2.5 mg p.o. at 2200 hours for impulse control, carbidopa/levodopa 25/250 two tabs p.o. t.i.d. for Lewy body disease with Parkinsonian variant, famotidine 20 mg p.o. daily for GERD, Lexapro for depression, docusate sodium 100 mg p.o. b.i.d., melatonin 3 mg p.o. at bedtime p.r.n. insomnia. LABORATORY DATA: CBC was within normal limits. Chemistries: Sodium 139, potassium 3.7, chloride 100, bicarbonate 32, anion gap 7, BUN 21, creatinine 1.0, glucose 96, estimated GFR 76, calcium 8.8, phosphorus 3.2, magnesium 2.3, total bilirubin 0.3, AST 18, ALT 19, alkaline phosphatase 68, total protein 7.0, albumin 3.8. TSH 0.016, slightly low free T4 0.8, total T3 78. Labs were done on 07/06/2019. He received his medical clearance from an outside Emergency Room. REASON FOR ADMISSION: As follows: Aggressive behavior at home, unable to care for him. HOSPITAL COURSE: The patient was admitted to Geriatric Psychiatry Unit. On initial days, the patient only got irritated, will become suddenly impulsive, had an incident of him, grabbing on to the nurse and she fell, requiring some brief manual restraint and chemical restraint. The patient had responded well [address] [address] DISCHARGE SUMMARY Name: SALOME AGUERO Room #: 528A-A [facility] IN M.R.#: [id number] Admission: 06/16/19 Attend Phys: Michelet Baca DO Discharge: 07/08/19 Date of : 59 Report #: [id number] to olanzapine, so at one point, I had him on 5 mg 3 times a day. This was a bit too sedating, so that was adjusted down on current 1.25 mg during the day and 2.5 mg at night. There were several family meetings and there was difficulty with family accepting his terminal state. The patient remained calm on the latter half of the admission, though no overt signs of pain. He is grossly wheelchair bound now, will garbage pick up man stuff occasionally, but unfortunately I think this is the best we can hope for. The family has a son on board with the son hospice for his detention placement at [facility], which I think is a good idea. VITAL SIGNS AT THE TIME OF DISCHARGE: Temperature 36.7, pulse 62, respirations 14, BP 80/51, O2 sat 96%. Interestingly, there were two blood pressure done at the same time on the that was the right arm, left arm was 130/51. Given you know the hospice terminal kind of picture, I did not feel that was worth working up. He was alert and did not appear in distress. MENTAL STATUS EXAMINATION: This is a well-developed, slightly disheveled male, in wheelchair, wearing glasses. Attention limited. Concentration limited. Speech soft, slow, sporadic. Some psychomotor retardation. No overt signs of harming himself or others. Memory noted to be impaired. Insight limited. Judgment limited. Fund of knowledge clearly diminished. Prognosis is poor given his Lewy body disease. <ELECTRONICALLY SIGNED> By: Michelet Baca DO 07/10/19 [id number] Michelet Baca, /nt
== END 2019-07-08 10:30 | DRG 57 ==
LOC: SBH 17:14 → EDBD 17:14 → SBH 17:14
PROVIDERS: Internal Medicine; ADMIT Psychiatry & Neurology Psychiatry
DX: G31.83 Neurocognitive disorder with Lewy bodies (principal); F02.81 Dementia in other diseases classified elsewhere, unspecified severity, with behavioral disturbance; F32.9 Major depressive disorder, single episode, unspecified; F41.9 Anxiety disorder, unspecified; Z66 Do not resuscitate; R00.0 Tachycardia, unspecified; Z79.899 Other long term (current) drug therapy
CPT/HCPCS: 10880